=== PATIENT | female | born 1990 | race Caucasian/White ===

== ENCOUNTER 2024-03-22 08:53 | Emergency (ER) | payer SELFPAY ==
[2024-03-22 08:59] VITALS: BP 158/99; PULSE 109; TEMP 36.6; O2SAT 98; BMI 43.3
--- NOTE | 2024-03-22 09:04 | XR_ITS ---
The [address] [address] Patient Name: DUY WEAVER MRN: [id number] date: 1990 Sex: F Assigned Patient Location: ED.MAIN Current Patient Location: ER Accession/Order Number: [id number] Exam Date: 03/22/2024 09:15 Report Date: 03/22/2024 09:33 At the request of: LEANDRA FORD Procedure: XR chest 2V EXAMINATION: XR chest 2V HISTORY: cough COMPARISON: XR chest 08/04/2022 FINDINGS: LUNGS: No significant pulmonary parenchymal abnormalities. VASCULATURE: No increased pulmonary vasculature. PLEURA: No pneumothorax, effusion, or pleural thickening. CARDIAC: No cardiomegaly or cardiac silhouette abnormality. MEDIASTINUM: No visible mass or adenopathy. BONES: No fracture or visible bone lesion. OTHER: Negative. XR/XR chest 2V IMPRESSION: 1. No acute cardiopulmonary process. Stable chest. Electronically authenticated by: ANDREW PARTIDA Date: 03/22/2024 09:33
[2024-03-22 09:26] LABS: Internal Control Within Normal Limits; Respiratory Syncytial Virus Not Detected (NOT DETECTE); SARS-CoV-2 Ag NEGATIVE (NEGATIVE)
[2024-03-22 09:27] LABS: Influenza Virus A Antigen Negative; Influenza Virus B Antigen Negative; Internal Control Within Normal Limits
[2024-03-22] MEDS: IPRATROPIUM/ALBUTEROL SULFATE 3 ML AMPUL.NEB IH (09:32)
[2024-03-22] MEDS: PREDNISONE 20 MG TABLET 40 MG PO (09:53)
--- NOTE | 2024-03-22 10:01 | ED.GENADUL1 ---
HPI HPI - General Adult General Chief complaint: Upper Respiratory Infection Stated complaint: COUGHING, WHEEZING Time Seen by Provider: 03/22/24 08:57 Source: patient Mode of arrival: walk-in Limitations: no limitations History of Present Illness HPI narrative: Patient presents ED complaining of upper respiratory symptoms. She states that last week she started to get a cold on last Wednesday and then last night it seemed to get worse. She has had severe nasal congestion facial pressure and blowing out thick green snot from her nose. She did lose her taste and smell so she was thinking it was COVID but she took 3 home tests which were all negative. She has been getting more short of breath since last night and used her daughter's albuterol inhaler which did help yesterday. Patient works at a [place] [employer] [facility] and is exposed to many viruses. No fever no nausea vomiting no abdominal pain. No chest pain. Patient states her work wanted her to get checked out in order to be off from work they required a visit. She is alert and oriented no acute distress. Mildly tachycardic. No pain with breathing. Oxygen saturations 98% on room air. Related Data Previous Rx's ?Medication ?Instructions ?Recorded albuterol sulfate 90 mcg/actuation 1 inh inhalation Q6H PRN shortness 03/22/24 aerosol inhaler of breath or wheezing #8.5 grams azithromycin 500 mg tablet See Rx Instructions PO .COMPLEX #3 03/22/24 (Zithromax TRI-BUSTER) tabs methylprednisolone 4 mg tablets in 4 mg PO DAILY #21 ea 03/22/24 a dose pack (Medrol (Buster)) Allergies Allergy/AdvReac Type Severity Reaction Status Date / Time Opioids - Morphine Analogues AdvReac Severe Vomiting Verified 03/22/24 08:59 Opioid HPI Opioid Management Most Recent Opioid Data: No Data to Display Review of Systems ROS Status of ROS 10 or more systems reviewed and unremarkable except as noted in history and below PFSH PFSH Social History Little interest or pleasure in doing things: not at all Feeling down, depressed, or hopeless: not at all Exam Narrative Exam Narrative: Time Seen: [] Vital Signs: [Per nurse's notes.] General: [Alert] Skin: [Warm, dry, no rash.] Head: [Normocephalic, atraumatic.] Neck: [Supple, trachea midline.] Eye: [Pupils are equal, round and reactive to light, extraocular movements are intact, normal conjunctiva.] Ears, nose, mouth and throat: oral mucosa moist. Cardiovascular: [Mild tachycardia, no murmur.] Respiratory: [Very mild inspiratory expiratory wheezing bilateral bases no respiratory distress respirations are non-labored, breath sounds are equal.] Chest wall: [No tenderness, no deformity.] Gastrointestinal: [Soft, nontender, non distended, normal bowel sounds.] MSK: 5 out of 5 muscle strength x 4 extremities no calf pain or edema Lymphatics: [No lymphadenopathy.] Psychiatric: [Cooperative, appropriate mood & affect.] Neurological: [Alert and oriented to person, place, time, and situation, no focal neurological deficit observed.] Constitutional Vital Signs, click to edit/add: Last Vital Signs Temp 98 F 03/22/24 08:59 Pulse 109 H 03/22/24 08:59 Resp 18 03/22/24 08:59 BP 158/99 H 03/22/24 08:59 Pulse Ox 98 03/22/24 08:59 O2 Del Method Room Air 03/22/24 08:59 Course Vital Signs Vital signs: Vital Signs Temperature 98 F 03/22/24 08:59 Pulse Rate 109 H 03/22/24 08:59 Respiratory Rate 18 03/22/24 08:59 Blood Pressure 158/99 H 03/22/24 08:59 Pulse Oximetry 98 03/22/24 08:59 Oxygen Delivery Method Room Air 03/22/24 08:59 Temperature 98 F 03/22/24 08:59 Pulse Rate 109 H 03/22/24 08:59 Respiratory Rate 18 03/22/24 08:59 Blood Pressure 158/99 H 03/22/24 08:59 Pulse Oximetry 98 03/22/24 08:59 Oxygen Delivery Method Room Air 03/22/24 08:59 Medical Decision Making MDM Narrative Medical decision making narrative: Patient is negative for flu COVID and RSV. Chest x-ray does not show any acute pneumonia. Patient has facial pain with severe sinus congestion so she will be given antibiotics for the sinus and also for potentially lung infection. Patient will be sent home with a steroid taper as well as albuterol inhaler. Patient was instructed to return to ED if worsening symptoms or shortness of breath or difficulty breathing otherwise follow-up with family doctor. Patient is comfortable with care plan for home. Differential Diagnosis Differential Diagnosis: Flu COVID-pneumonia sinusitis upper respiratory infection Lab Data Lab results reviewed: Yes I reviewed the patient's lab results Labs: Lab Results 03/22/24 Range/Units 09:03 Influenza Type A Ag Negative Influenza Type B Ag Negative RSV Antigen Not detected (NOT DETECTE) SARS-CoV-2 Ag (CV2AG) Negative (NEGATIVE) Imaging Data Chest x-ray: Radiologist's impression: ITS Impressions Chest X-Ray 03/22/24 09:04 IMPRESSION: 1. No acute cardiopulmonary process. Stable chest. Electronically authenticated by: ANDREW PARTIDA Date: 03/22/2024 09:33 Discharge Plan Discharge Chief Complaint: Upper Respiratory Infection Clinical Impression: Upper respiratory infection Patient Disposition: Home, Self-Care Time of Disposition Decision: 09:43 Condition: Good Mode of Transportation: Private Vehicle Prescriptions / Home Meds: New albuterol sulfate 90 mcg/actuation HFA aerosol inhaler 1 inh inhalation Q6H PRN (Reason: shortness of breath or wheezing) Qty: 8.5 0RF methylprednisolone [Medrol (Buster)] 4 mg tablets,dose pack 4 mg PO DAILY Qty: 21 0RF Rx Instructions: MEDROL DOSEPAK disp one TAPER as directed! azithromycin [Zithromax TRI-BUSTER] 500 mg tablet See Rx Instructions .ROUTE .COMPLEX Qty: 3 0RF Rx Instructions: For 250 mg dose pack: take 500 mg today (day 1), then 250 mg for 4 days (days 2-5) DISP regular ZPAK use as directed!! Print Language: Zambian Instructions: Upper Respiratory Infection (ED) Referrals: Physician,Non-Staff, MD [Primary Care Provider] - 1 week Discharge Date/Time: 03/22/24 10:00
== END 2024-03-22 10:00 | disposition home or self-care (01) ==
PROVIDERS: Emergency Provider Emergency Medicine
DX: J06.9 Acute upper respiratory infection, unspecified (principal)
CPT/HCPCS: 71046; 87420; 87804; 87811; 94640; 99284; J7512